=== PATIENT | male | born 1960 | race Caucasian/White ===

== ENCOUNTER 2017-03-05 19:18 | Emergency (ER) | payer MEDICAID ==
[2017-03-05 22:53] VITALS: BP 128/88
== END 2017-03-05 22:53 | disposition home or self-care (01) ==
LOC: ED 19:18
DX: M79.641 Pain in right hand (principal); M79.601 Pain in right arm; R22.31 Localized swelling, mass and lump, right upper limb; Z87.81 Personal history of (healed) traumatic fracture